=== PATIENT | male | born 1960 | race Two or more races ===

== ENCOUNTER 2016-08-09 12:27 | Inpatient (IN) | payer BC, OTHER ==
--- NOTE | 2016-08-09 12:33 | ER Document Report ---
ED Medical Screen (RME) - General Chief Complaint: Abdominal Pain Stated Complaint: STOMACH PAIN Mode of Arrival: Wheelchair Information source: Patient Notes: Patient presents to the emergency department with /o pain to the periumbilical and right lower quadrant abdominal pain for the past 2 days. reports diarrhea fever and vomited yesterday. Unable to eat. Still has gallbladder and appendix. RLQ TTP. I have greeted and performed a rapid initial assessment of this patient. A comprehensive ED assessment and evaluation of the patient, analysis of test results and completion of the medical decision making process will be conducted by additional ED providers. TRAVEL OUTSIDE OF THE [place] IN LAST 30 DAYS: No - Related Data Allergies/Adverse Reactions: No Known Allergies Allergy (Verified 08/09/16 12:31) Past Medical History - Social History Chew tobacco use (# tins/day): No Frequency of alcohol use: None Drug Abuse: None - Past Medical History Cardiac Medical History: Denies: Hx Heart Attack, Hx Hypertension Pulmonary Medical History: Denies: Hx Asthma Neurological Medical History: Denies: Hx Cerebrovascular Accident, Hx Seizures Renal/ Medical History: Denies: Hx Peritoneal Dialysis GI Medical History: Denies: Hx Hepatitis, Hx Hiatal Hernia, Hx Ulcer Infectious Medical History: Denies: Hx Hepatitis Past Surgical History: Denies: Hx Open Heart Surgery, Hx Pacemaker
--- NOTE | 2016-08-09 12:58 | ER Document Report ---
ED GI/ - General Mode of Arrival: Wheelchair Information source: Patient TRAVEL OUTSIDE OF THE [place] IN LAST 30 DAYS: No - HPI Patient complains to provider of: Abdominal pain Onset: Yesterday Timing/Duration: Gradual Quality of pain: Cramping, Dull Severity at maximum: Moderate Severity in ED: Moderate Context: denies: Bad food, Lifting, Out of the country travel, Recent trauma Location: LLQ, RLQ, Suprapubic Associated symptoms: denies: Constipation, Diarrhea, Nausea, Vomiting Exacerbated by: Denies Relieved by: Denies Similar symptoms previously: No Recently seen / treated by doctor: No <TRINITY DEL REAL - Last Filed: 08/09/16 13:15> <ROSMERY WINTER - Last Filed: 08/09/16 17:46> - General Chief Complaint: Abdominal Pain Stated Complaint: STOMACH PAIN Notes: The patient is a 56-year-old male, no past medical history, presents with 1 day of suprapubic abdominal pain. He has never had this in the past and the pain is not worse when he urinates. His initial heart rate was 90 when he arrived to the ER. When he was moved to his room, the patient started to feel palpitations and an EKG showed that he was in SVT with a heart rate of 236. He was transferred over to the acute side. Valsalva maneuver attempted and patient 's heart rate decreased down to 140s and he was now in A. fib with RVR. He has no history of A. fib. Denies shortness of breath, nausea, vomiting, bloody stools, fevers, hematuria or dysuria. (ROSMERY WINTER) - HPI Notes: 08/09/16 13:17 Shortly after being placed in room 36 in the emergency department, the patient began to complain of chest pain. He described moderate discomfort across the anterior chest, with no radiation. He denies shortness of breath. He denied nausea. On examination he was mildly diaphoretic and was noted to be markedly tachycardic. 12-lead EKG was obtained showing PSVT with a ventricular rate in the 230s. He was immediately transferred to the acute care portion of the emergency department, and the provider there alerted to his presence. (TRINITY DEL REAL) - Related Data Allergies/Adverse Reactions: No Known Allergies Allergy (Verified 08/09/16 12:31) Past Medical History - General Information source: Patient - Social History Smoking Status: Never Smoker Chew tobacco use (# tins/day): No Frequency of alcohol use: None Drug Abuse: None Lives with: Spouse/Significant other Family History: None Patient has suicidal ideation: No Patient has homicidal ideation: No - Past Medical History Cardiac Medical History: Reports: None Denies: Hx Heart Attack, Hx Hypertension Pulmonary Medical History: Reports: None Denies: Hx Asthma Neurological Medical History: Denies: Hx Cerebrovascular Accident, Hx Seizures Endocrine Medical History: Reports: None Renal/ Medical History: Reports: None. Denies: Hx Kidney Stones, Hx Peritoneal Dialysis Malignancy Medical History: Reports None GI Medical History: Reports: None. Denies: Hx Hepatitis, Hx Hiatal Hernia, Hx Ulcer Musculoskeltal Medical History: Reports None Psychiatric Medical History: Reports: None Infectious Medical History: Denies: Hx Hepatitis Past Surgical History: Denies: Hx Open Heart Surgery, Hx Pacemaker <TRINITY DEL REAL - Last Filed: 08/09/16 13:15> Review of Systems - Review of Systems Constitutional: No symptoms reported EENT: No symptoms reported Cardiovascular: Chest pain Respiratory: No symptoms reported Gastrointestinal: See HPI, Abdominal pain Genitourinary: See HPI Musculoskeletal: No symptoms reported Skin: No symptoms reported Neurological/Psychological: No symptoms reported <TRINITY DEL REAL - Last Filed: 08/09/16 13:15> <ROSMERY WINTER - Last Filed: 08/09/16 17:46> - Review of Systems Notes: REVIEW OF SYSTEMS: CONSTITUTIONAL: -fevers, -chills EENT: -eye pain, -difficulty swallowing, -nasal congestion CARDIOVASCULAR: +palpitations, -chest pain, -syncope. RESPIRATORY: -cough, -SOB GASTROINTESTINAL: +abdominal pain, -nausea, -vomiting, -diarrhea GENITOURINARY: -dysuria, -hematuria MUSCULOSKELETAL: -back pain, -neck pain SKIN: -rash or skin lesions. HEMATOLOGIC: -easy bruising or bleeding. LYMPHATIC: -swollen, enlarged glands. NEUROLOGICAL: -altered mental status or loss of consciousness, -headache, - neurologic symptoms PSYCHIATRIC: -anxiety, -depression. ALL OTHER SYSTEMS REVIEWED AND NEGATIVE. (ROSMERY WINTER) Physical Exam - Vital signs Interpretation: Hypertensive. No: Tachycardic, Tachypneic, Febrile - General General appearance: Appears well, Alert In distress: None - HEENT Head: Normocephalic Eyes: Normal Conjunctiva: Normal Ears: Normal Nasal: Normal Mouth/Lips: Normal Mucous membranes: Normal - Respiratory Respiratory status: No respiratory distress - Cardiovascular Rhythm: Regular, Tachycardia - Abdominal Inspection: Normal Distension: No distension - Extremities General upper extremity: Normal inspection General lower extremity: Normal inspection - Neurological Neuro grossly intact: Yes Cognition: Normal - Psychological Associated symptoms: Normal affect, Normal mood - Skin Skin Temperature: Warm Skin Moisture: Moist Skin Color: Normal <TRINITY DEL REAL - Last Filed: 08/09/16 13:15> <ROSMERY WINTER - Last Filed: 08/09/16 17:46> - Vital signs Vitals: Temp Pulse Resp BP Pulse Ox 99.3 F 94 20 149/83 H 96 08/09/16 12:31 08/09/16 12:31 08/09/16 12:31 08/09/16 12:31 08/09/16 12:31 Notes: Onset of extreme tachycardia after patient placed in treatment room. (TRINITY DEL REAL) - Notes Notes: PHYSICAL EXAMINATION: GENERAL: Well-appearing, well-nourished and in no acute distress. HEAD: Atraumatic, normocephalic. EYES: Pupils equal round and reactive to light, extraocular movements intact, sclera anicteric, conjunctiva are normal. ENT: nares patent, oropharynx clear without exudates. Moist mucous membranes. NECK: Normal range of motion, supple without lymphadenopathy LUNGS: Breath sounds clear to auscultation bilaterally and equal. No wheezes rales or rhonchi. HEART: Irregularly irregular heart rate is tachycardic ABDOMEN: Moderate suprapubic tenderness, soft, normoactive bowel sounds. No guarding, no rebound. No masses appreciated. EXTREMITIES: Normal range of motion, no pitting or edema. No cyanosis. NEUROLOGICAL: Cranial nerves grossly intact. Normal speech, normal gait. Normal sensory, motor, and reflex exams. PSYCH: Normal mood, normal affect. SKIN: Warm, Dry, normal turgor, no rashes or lesions noted. (ROSMERY WINTER) Course - Laboratory Result Diagrams: 08/09/16 12:45 08/09/16 12:45 <TRINITY DEL REAL - Last Filed: 08/09/16 13:15> - Laboratory Result Diagrams: 08/09/16 12:45 08/09/16 12:45 - Diagnostic Test Radiology reviewed: Image reviewed, Reports reviewed - EKG Interpretation by Me Rate: Tachycardia Rhythm: SVT <ROSMERY WINTER - Last Filed: 08/09/16 17:46> - Re-evaluation Re-evalutation: Patient's SVT with an initial rate of 238 turned into A. fib with RVR with a rate of 140. Diltiazem drip started, but patient remained in A. fib with RVR despite being on 25 mg/hr. since symptoms just started when he was in the emergency room, patient was consented for procedural sedation and he was cardioverted. He successfully cardioverted into normal sinus rhythm at a rate of 90. He is no longer feeling any palpitations. CT shows evidence of sigmoid diverticulitis. Will begin IV antibiotics for diverticulitis and admit to the hospital for further evaluation and treatment of new onset A. fib with RVR. Spoke to Dr. Torre at 1730 and he has accepted patient. (ROSMERY WINTER) - Vital Signs Vital signs: Temp Pulse Resp BP Pulse Ox 99.3 F 94 22 H 121/75 92 08/09/16 12:31 08/09/16 12:31 08/09/16 17:21 08/09/16 17:21 08/09/16 17:21 - Laboratory Laboratory results interpreted by me: 08/09/16 08/09/16 08/09/16 12:45 12:45 13:48 WBC 17.0 H RBC 5.57 H Hgb 17.1 H Seg Neutrophils % 84.8 H Lymphocytes % 9.8 L Absolute Neutrophils 14.4 H Glucose 141 H Total Bilirubin 2.4 H Direct Bilirubin 0.5 H ALT 95 H Urine Protein 30 H Urine Ketones 20 H - Diagnostic Test Radiology results interpreted by me: CT A/P: Sigmoid diverticulitis (ROSMERY WINTER) Procedures - Conscious Sedation Conscious sedation Consent obtained: Yes Indication: Cardioversion Last meal: Yesterday Prior complications: Procedural sedation Normal healthy pt.: P1. 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 Medications administered: Diprivan Reversal agents: None I personally performed/intraservice time: Sedation, Procedure, 30 min or less Complications: No - Additional Procedures Cardioversion/Defib Additional Procedures: Cardioversion/defib <ROSMERY WINTER - Last Filed: 08/09/16 17:46> Critical Care Note - Critical Care Note Total time excluding time spent on procedures (mins): 45 <ROSMERY WINTER - Last Filed: 08/09/16 17:46> Discharge <TRINITY DEL REAL - Last Filed: 08/09/16 13:15> - [facility] Admitted: Telemetry <ROSMERY WINTER - Last Filed: 08/09/16 17:46> - Discharge Clinical Impression: Atrial fibrillation with RVR Abdominal pain Qualifiers: Abdominal location: lower abdomen, unspecified Qualified Code(s): R10.30 - Lower abdominal pain, unspecified Condition: Stable Disposition: ADMITTED INPATIENT
[2016-08-09 13:04] LABS: ABSOLUTE LYMPHOCYTES (AUTO) 1.7 10^3/uL (0.5-4.7); ABSOLUTE MONOCYTES (AUTO) 0.9 10^3/uL (0.1-1.4); ABSOLUTE NEUT (AUTO) 14.4 10^3/uL (1.7-8.2); BASOPHILS % (AUTO) 0.1 % (0-2); HEMATOCRIT 48.7 % (37.9-51.0); HEMOGLOBIN 17.1 g/dL (13.5-17.0); HGB HCT DIFFERENCE 2.6; LYMPHOCYTES % (AUTO) 9.8 % (13-45); MEAN CORPUSCULAR HEMOGLOBIN 30.7 pg (27.0-33.4); MEAN CORPUSCULAR HGB CONC 35.1 g/dL (32.0-36.0); MEAN CORPUSCULAR VOLUME 87 fl (80-97); MONOCYTES % (AUTO) 5.3 % (3-13); RED BLOOD COUNT 5.57 10^6/uL (4.35-5.55); RED CELL DISTRIBUTION WIDTH 13.3 % (11.5-14.0); SEGMENTED NEUTROPHILS % (AUTO) 84.8 % (42-78)
[2016-08-09] MEDS ORDERED: ADENOSINE INJ/PF 6 MG/2 ML SDV IV ONE (13:19)
[2016-08-09 13:21] LABS: ALANINE AMINOTRANSFERASE 95 U/L (21-72); ALBUMIN 4.6 g/dL (3.5-5.0); ALKALINE PHOSPHATASE 89 U/L (38-126); ANION GAP 16 (5-19); ASPARTATE AMINO TRANSFERASE 49 U/L (17-59); BILIRUBIN,DIRECT 0.5 mg/dL (0.0-0.4); BILIRUBIN,TOTAL 2.4 mg/dL (0.2-1.3); BLOOD UREA NITROGEN 18 mg/dL (7-20); CALCIUM 9.5 mg/dL (8.4-10.2); CARBON DIOXIDE 22 mmol/L (22-30); CHLORIDE 101 mmol/L (98-107); GLUCOSE 141 mg/dL (75-110); LIPASE 85.7 U/L (23-300); POTASSIUM 3.8 mmol/L (3.6-5.0); SODIUM 139.1 mmol/L (137-145)
[2016-08-09] MEDS ORDERED: DILTIAZEM HCL/D5W 125 MG/125 ML RTUINJ IV ONE ×2 (13:25→19:38)
[2016-08-09] MEDS ORDERED: DILTIAZEM HCL INJ 25 MG/5 ML VIAL ONE ×3 (13:26→14:56)
[2016-08-09 14:04] LABS: APPEARANCE,URINE CLEAR; BILIRUBIN,URINE NEGATIVE (NEGATIVE); GLUCOSE, URINE NEGATIVE (NEGATIVE); KETONES,URINE 20 mg/dL (NEGATIVE); LEUKOCYTE ESTERASE,URINE NEGATIVE (NEGATIVE); NITRITE,URINE NEGATIVE (NEGATIVE); PROTEIN,URINE 30 mg/dL (NEGATIVE); URINE SPECIFIC GRAVITY 1.005; UROBILINOGEN,URINE NEGATIVE mg/dL (<2.0)
[2016-08-09] MEDS ORDERED: MORPHINE SULFATE 10 MG/ML INJ IV ONE (14:28)
[2016-08-09] MEDS ORDERED: CIPROFLOXACIN 400 MG/D5W RTU 200 ML IV ONE (15:56)
[2016-08-09] MEDS ORDERED: PROPOFOL INJ 200 MG/20 ML VIAL IV ONE (15:57)
[2016-08-09] MEDS ORDERED: METRONIDAZOLE 500 MG/NS RTU 100 ML IV ONE (15:57)
--- NOTE | 2016-08-09 17:18 | EKG REPORT ---
SEVERITY:- ABNORMAL ECG - ATRIAL FIBRILLATION WITH RAPID V-RATE REPOLARIZATION ABNORMALITY, PROB RATE RELATED : Confirmed by: Rajat Correa MD 09-Aug-2016 17:18:23
--- NOTE | 2016-08-09 17:19 | EKG REPORT ---
SEVERITY:- ABNORMAL ECG - SUPRAVENTRICULAR TACHYCARDIA REPOLARIZATION ABNORMALITY, PROB RATE RELATED : Confirmed by: Rajat Correa MD 09-Aug-2016 17:18:43
[2016-08-09] MEDS ORDERED: ACETAMINOPHEN 325 MG TABLET PO PRN (18:43)
[2016-08-09] MEDS ORDERED: ONDANSETRON HCL INJ/PF 4 MG/2 ML SDV IV PRN (18:43)
--- NOTE | 2016-08-09 19:01 | PDOC H&P ---
History of Present Illness Admission Date/PCP: 08/09/16 18:22 Patient complains of: Abdominal pain History of Present Illness: LIV RUFF is a 56 year old male, no significant past medical history has been having abdominal pain for the past 3 days with an episode of nausea and vomiting. No melena hematochezia or hematemesis. Patient had episodes of diarrhea as well. Patient continues to work despite feeling sick. Earlier today abdominal pain got worse and therefore she was brought to the hospital for evaluation. While in the emergency room when he related the bed he developed SVT. Patient was given adenosine and noted atrial fibrillation. Cardizem was given but no slowing of the heart rate was noted eventually DC cardioversion was performed and the patient went back to sinus. CT of the abdomen and pelvis revealed diverticulitis. Patient was then referred for admission. Past Medical History Cardiac Medical History: Reports: None Denies: Myocardial Infarction, Hypertension Pulmonary Medical History: Reports: None Denies: Asthma Neurological Medical History: Denies: Seizures Endocrine Medical History: Reports: None Renal/ Medical History: Reports: None Malignancy Medical History: Reports: None GI Medical History: Reports: None Denies: Hepatitis, Hiatal Hernia Musculoskeltal Medical History: Reports: None Psychiatric Medical History: Reports: None Hematology: Denies: Anemia, Sickle Cell Disease Past Surgical History Past Surgical History: Reports: Other - Cataract surgery Denies: Pacemaker Social History Information Source: Patient Lives with: Spouse/Significant other Smoking Status: Never Smoker Frequency of Alcohol Use: Occasional Hx Recreational Drug Use: No Drugs: None Family History Family History: None Parental Family History Reviewed: Yes Children Family History Reviewed: Yes Sibling(s) Family History Reviewed.: Yes Medication/Allergy Home Medications: Thiamine Mononitrate [Vitamin B-1] 100 mg PO DAILY 03/22/15 Fish Oil/Dha/Epa [Fish Oil 1,200 mg Fish Oil] 1 each PO DAILY 03/28/15 Allergies/Adverse Reactions: No Known Allergies Allergy (Verified 08/09/16 12:31) Review of Systems Constitutional: PRESENT: fever(s) - Low-grade. ABSENT: chills, headache(s), weight gain, weight loss Eyes: ABSENT: visual disturbances Ears: ABSENT: hearing changes Nose, Mouth, and Throat: ABSENT: mouth pain, sore throat Cardiovascular: ABSENT: chest pain, dyspnea on exertion, edema, orthropnea, palpitations Respiratory: ABSENT: cough, dyspnea, hemoptysis, sputum Gastrointestinal: PRESENT: abdominal pain, diarrhea, nausea, vomiting. ABSENT: coffee ground emesis, constipation, hematemesis, hematochezia, melena Genitourinary: ABSENT: difficulty urinating, dysuria, hematuria Musculoskeletal: ABSENT: joint swelling Integumentary: ABSENT: pruritus, rash, wounds Neurological: ABSENT: abnormal gait, abnormal speech, confusion, dizziness, focal weakness, syncope Psychiatric: ABSENT: anxiety, depression, homidical ideation, suicidal ideation Endocrine: ABSENT: cold intolerance, heat intolerance, polydipsia, polyuria Hematologic/Lymphatic: ABSENT: easy bleeding, easy bruising Physical Exam Vital Signs: Temp Pulse Resp BP Pulse Ox 99.3 F 95 20 126/68 H 93 08/09/16 12:31 08/09/16 17:13 08/09/16 18:11 08/09/16 18:11 08/09/16 18:11 General appearance: PRESENT: no acute distress, cooperative, obese - Overweight Head exam: PRESENT: atraumatic, normocephalic Eye exam: PRESENT: conjunctiva pink, EOMI, PERRLA. ABSENT: scleral icterus Ear exam: PRESENT: normal external ear exam Mouth exam: PRESENT: dry mucosa, neck supple, tongue midline Neck exam: ABSENT: carotid bruit, JVD, lymphadenopathy, thyromegaly Respiratory exam: PRESENT: clear to auscultation coretta. ABSENT: rales, rhonchi, wheezes Cardiovascular exam: PRESENT: RRR, +S1, +S2. ABSENT: diastolic murmur, gallop, rubs, systolic murmur Pulses: PRESENT: normal dorsalis pedis pul Vascular exam: PRESENT: normal capillary refill GI/Abdominal exam: PRESENT: hyperactive bowel sounds, soft, tenderness - Diffuse but mild. ABSENT: distended - Obese, guarding, mass - Limited due to discomfort, organolmegaly - Limited due to discomfort, rebound Rectal exam: PRESENT: deferred Extremities exam: PRESENT: full ROM. ABSENT: calf tenderness, clubbing, pedal edema Neurological exam: PRESENT: alert, awake, oriented to person, oriented to place , oriented to time, oriented to situation Psychiatric exam: PRESENT: appropriate affect, normal mood. ABSENT: homicidal ideation, suicidal ideation Skin exam: PRESENT: dry, intact, warm. ABSENT: cyanosis, rash Results Impressions: Abdomen/Pelvis CT 08/09/16 14:28 IMPRESSION: Diverticulitis sigmoid colon. No perforation or abscess. Assessment & Plan - Diagnosis (1) Abdominal pain Qualifiers: Abdominal location: lower abdomen, unspecified Qualified Code(s): R10.30 - Lower abdominal pain, unspecified Is this a current diagnosis for this admission?: Yes (2) Atrial fibrillation with RVR Is this a current diagnosis for this admission?: Yes (3) SVT (supraventricular tachycardia) Is this a current diagnosis for this admission?: Yes - Time Time Spent: 30 to 50 Minutes - Inpatient Certification Based on my medical assessment, after consideration of the patient's comorbidities, presenting symptoms, or acuity I expect that the services needed warrant INPATIENT care.: Yes I certify that my determination is in accordance with my understanding of Medicare's requirements for reasonable and necessary INPATIENT services [42 CFR 412.3e].: Yes Medical Necessity: Significant Comorbidiites Make Outpatient Treatment Too Risky , Need Close Monitoring Due to Risk of Patient Decompensation, Need For IV Fluids, Need for IV Antibiotics Post Hospital Care: D[facility] [employer] Floorperson Documentation - Plan Summary Plan Summary: The patient will be admitted to [facility]. We will monitor for any more arrhythmias. In the meantime we will consult cardiology for further evaluation. I we'll start the patient on intravenous Invanz. Antiemetics and analgesics will be given as needed. I will hydrate the patient with normal saline. DVT prophylaxis with Lovenox will be placed. Further testing depending on the initial evaluation as above. We will obtain cardiac enzymes 3.
[2016-08-09 19:37] LABS: ADD ON TESTING BLD IN LAB ACKNOWLEDGE
[2016-08-09] MEDS ORDERED: METOPROLOL SUCCINATE 25 MG TAB.SR.24H PO ONE (20:00)
[2016-08-09] MEDS ORDERED: ERTAPENEM SODIUM INJ 1 GM VIAL IV PRN (20:00)
[2016-08-09] MEDS ORDERED: ERTAPENEM SODIUM 1 GM in NORMAL SALINE 50 ML IV SCH (20:00)
[2016-08-09 20:13] LABS: CREATINE KINASE MB 0.36 ng/mL (<4.55)
[2016-08-09 20:21] LABS: URINE BARBITURATES SCREEN NEGATIVE; URINE METHADONE SCREEN NEGATIVE; URINE OPIATES LOW NEGATIVE; URINE PHENCYCLIDINE SCREEN NEGATIVE
[2016-08-09 20:50] LABS: THYROID STIMULATING HORMONE 1.05 uIU/mL (0.47-4.68)
[2016-08-09] MEDS: METOPROLOL SUCCINATE 25 MG TAB.SR.24H PO SCH (20:50)
[2016-08-10] MEDS: NORMAL SALINE 1000 ML 1,000 ML IV PRN ×3 (01:23→18:08)
[2016-08-10 01:58] LABS: CREATINE KINASE MB 0.51 ng/mL (<4.55)
[2016-08-10 02:04] LABS: TROPONIN I 0.116 ng/mL
[2016-08-10 02:15] LABS: TROPONIN I 0.151 ng/mL
[2016-08-10] MEDS: LANSOPRAZOLE 30 MG TAB.RAP.DR PO SCH (06:43)
[2016-08-10 07:22] LABS: ABSOLUTE BASOPHILS # (AUTO) 0.1 10^3/uL (0.0-0.2); ABSOLUTE LYMPHOCYTES (AUTO) 1.5 10^3/uL (0.5-4.7); ABSOLUTE MONOCYTES (AUTO) 0.9 10^3/uL (0.1-1.4); ABSOLUTE NEUT (AUTO) 11.5 10^3/uL (1.7-8.2); BASOPHILS % (AUTO) 0.5 % (0-2); EOSINOPHILS % (AUTO) 0.3 % (0-6); HEMATOCRIT 40.6 % (37.9-51.0); HGB HCT DIFFERENCE 1.4; MEAN CORPUSCULAR HEMOGLOBIN 30.6 pg (27.0-33.4); MEAN CORPUSCULAR HGB CONC 34.6 g/dL (32.0-36.0); MEAN CORPUSCULAR VOLUME 89 fl (80-97); MONOCYTES % (AUTO) 6.3 % (3-13); RED BLOOD COUNT 4.58 10^6/uL (4.35-5.55); RED CELL DISTRIBUTION WIDTH 13.4 % (11.5-14.0); SEGMENTED NEUTROPHILS % (AUTO) 81.9 % (42-78)
[2016-08-10 07:37] LABS: ANION GAP 10 (5-19); BLOOD UREA NITROGEN 12 mg/dL (7-20); CALCIUM 8.2 mg/dL (8.4-10.2); CARBON DIOXIDE 22 mmol/L (22-30); CHLORIDE 109 mmol/L (98-107); CREATINE KINASE 182 U/L (55-170); CREATININE RESULT 0.69 mg/dL (0.52-1.25); GLUCOSE 116 mg/dL (75-110); POTASSIUM 3.7 mmol/L (3.6-5.0); SODIUM 140.9 mmol/L (137-145)
[2016-08-10 07:47] LABS: CREATINE KINASE MB 1.19 ng/mL (<4.55); TROPONIN I 0.072 ng/mL
[2016-08-10] MEDS: ENOXAPARIN SODIUM INJ 40 MG/0.4 ML DISP.SYRIN SUBCUT SCH (08:09)
--- NOTE | 2016-08-10 08:53 | EKG REPORT ---
SEVERITY:- ABNORMAL ECG - SINUS RHYTHM POST PVC PAUSE W/ SUPRAVENTRICULAR ESCAPE BORDERLINE T ABNORMALITIES, INFERIOR LEADS : Confirmed by: Rajat Correa MD 10-Aug-2016 08:52:47
--- NOTE | 2016-08-10 08:57 | PDOC PROGRESS REPORT ---
Subjective Progress Note for:: 08/10/16 Subjective:: Better today. Denies any nausea or vomiting. Still with abdominal pain. Some stools but not diarrhea according to spouse. Denies stiffness or fever. No reported SVT or palpitation. Patient denies chest pain. No rectal bleeding. Physical Exam Vital Signs: Temp Pulse Resp BP Pulse Ox 99.0 F 68 20 111/74 97 08/10/16 08:00 08/10/16 08:00 08/10/16 08:00 08/10/16 08:00 08/10/16 08:00 Intake & Output 08/09/16 08/10/16 08/11/16 06:59 06:59 06:59 Weight 78.3 kg General appearance: PRESENT: no acute distress, cooperative, obese Head exam: PRESENT: normocephalic Eye exam: PRESENT: EOMI Mouth exam: PRESENT: moist, neck supple Neck exam: ABSENT: JVD Respiratory exam: PRESENT: clear to auscultation coretta. ABSENT: rhonchi, wheezes Cardiovascular exam: PRESENT: RRR. ABSENT: gallop GI/Abdominal exam: PRESENT: hyperactive bowel sounds, soft. ABSENT: distended, tenderness Extremities exam: ABSENT: pedal edema Skin exam: PRESENT: dry, warm. ABSENT: cyanosis Results Laboratory Results: 08/10/16 07:14 08/10/16 07:14 08/10/16 08/10/16 07:14 07:14 WBC 14.0 H RBC 4.58 Hgb 14.0 D Hct 40.6 MCV 89 MCH 30.6 MCHC 34.6 RDW 13.4 Plt Count 128 L Seg Neutrophils % 81.9 H Lymphocytes % 11.0 L Monocytes % 6.3 Eosinophils % 0.3 Basophils % 0.5 Absolute Neutrophils 11.5 H Absolute Lymphocytes 1.5 Absolute Monocytes 0.9 Absolute Eosinophils 0.0 Absolute Basophils 0.1 Sodium 140.9 Potassium 3.7 Chloride 109 H Carbon Dioxide 22 Anion Gap 10 BUN 12 Creatinine 0.69 Est GFR ( Amer) > 60 Est GFR (Non-Af Amer) > 60 Glucose 116 H Calcium 8.2 L 08/09/16 08/09/16 08/10/16 19:35 19:35 01:23 Creatine Kinase 147 168 CK-MB (CK-2) 0.36 Troponin I 0.151 0308/10/16 08/10/16 01:23 07:14 07:14 Creatine Kinase 182 H CK-MB (CK-2) 0.51 1.19 Troponin I 0.116 0.072 Impressions: Chest X-Ray 08/09/16 00:00 IMPRESSION: NO SIGNIFICANT RADIOGRAPHIC FINDING IN THE CHEST. Abdomen/Pelvis CT 08/09/16 14:28 IMPRESSION: Diverticulitis sigmoid colon. No perforation or abscess. Lung Scan-VQ NM 08/09/16 21:07 IMPRESSION: NO VENTILATION-PERFUSION MISMATCHES; NEGATIVE FOR PULMONARY EMBOLI. INHOMOGENEOUS DISTRIBUTION OF RADIOTRACER LIKELY ON THE BASIS OF UNDERLYING CHRONIC PULMONARY DISEASE. Assessment & Plan - Diagnosis (1) Abdominal pain Qualifiers: Abdominal location: lower abdomen, unspecified Qualified Code(s): R10.30 - Lower abdominal pain, unspecified Is this a current diagnosis for this admission?: Yes (2) Atrial fibrillation with RVR Is this a current diagnosis for this admission?: Yes (3) SVT (supraventricular tachycardia) Is this a current diagnosis for this admission?: Yes - Time Time Spent with patient: 25-34 minutes - Plan Summary Plan Summary: Case discussed with cardiology. Metoprolol started. Continue current antibiotics and IV fluids. Continue current diet consistency for now. We will transfer to telemetry [place]. Monitor electrolytes and WBC.
[2016-08-10] MEDS: OXYCODONE HCL IR 5 MG TABLET PO PRN ×4 (10:08→22:42)
[2016-08-10] MEDS: METOPROLOL SUCCINATE 25 MG TAB.SR.24H PO SCH ×2 (10:09→22:38)
[2016-08-10] MEDS ORDERED: METOPROLOL TARTRATE PF/INJ 5 MG/5 ML SDV IV ONE (16:17)
[2016-08-10] MEDS ORDERED: POTASSI CL 20 MEQ/50 ML RIDER 20 MEQ/50 ML RTUPB IV ONE (16:42)
[2016-08-10] MEDS ORDERED: AMIODARONE HCL 150 MG in DEXTROSE 5%-WATER 100 ML IV ONE (17:00)
[2016-08-10] MEDS: METOPROLOL TARTRATE PF/INJ 5 MG/5 ML SDV IV PRN (17:08)
[2016-08-10] MEDS: POTASSIUM CHLORIDE 20 MEQ/50 ML RTU IV SCH ×2 (17:09→20:42)
[2016-08-10] MEDS: DEXTROSE 5%-WATER 500 ML with AMIODARONE HCL 900 MG IV PRN ×2 (17:10)
--- NOTE | 2016-08-10 17:37 | PDOC PROGRESS REPORT ---
Subjective Progress Note for:: 08/10/16 Subjective:: Patient seems to be doing better with gradual improvement. Pt is denying any chest arm or neck discomfort. Patient denying any PND, orthopnea. Patient denied any sustained palpitations, dizziness, syncope, near syncope. Patient denying any fever chills. Patient denying any other significant discomfort. Patient is maintaining sinus rhythm. However he is noted to have frequent short runs of SVT/paroxysmal atrial tachycardia. Patient feels poorly and does poorly when he has this short runs. Review of systems: Rest review of systems negative. Medications: Medications have been reviewed. Physical Exam Vital Signs: Temp Pulse Resp BP Pulse Ox 99.5 F 75 20 126/69 H 96 08/10/16 12:00 08/10/16 12:00 08/10/16 14:00 08/10/16 12:43 08/10/16 14:00 Intake & Output 08/09/16 08/10/16 08/11/16 06:59 06:59 06:59 Intake Total 112 Output Total 100 Balance 12 Weight 78.3 kg Exam: GENERAL: well-nourished and in no acute distress. Alert and oriented x3 HEAD: Atraumatic, normocephalic. EYES: Pupils equal round and reactive to light, extraocular movements intact, sclera anicteric, conjunctiva are normal. ENT: TMs normal, nares patent, oropharynx clear without exudates. Moist mucous membranes. No oral ulcerations or bleeding gums noted NECK: supple without lymphadenopathy. Trachea is central. No cervical or axillary lymphadenopathy noted. Carotids are 2+, JVD WNL LUNGS: Respiration seems nonlabored, no significant accessory muscle action noted. Breath sounds clear to auscultation bilaterally and equal noted. No wheezes rales or rhonchi noted. No significant dullness noted on percussion. CHEST: Palpation of the chest wall shows no significant chest wall tenderness. No other significant abnormalities noted. 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 ABDOMEN: Soft, lower abdominal significant tenderness appreciated, normoactive bowel sounds. No guarding, no rebound. No rigidity noted . No masses appreciated. EXTREMITIES: Pedal pulses are 1-2+, no calf tenderness noted. No clubbing or cyanosis. negative pedal edema noted NEUROLOGICAL: Focused neurological exam showed no significant neurologic deficit. Normal speech, no focal weakness appreciated. PSYCH: Normal mood, normal affect. Judgment and insight within normal limits. SKIN: No significant ecchymosis, rash, ulcerations or signs of pruritus noted. MUSCULOSKELETAL EXAM: No significant joint swelling noted. Results Laboratory Results: 08/10/16 07:14 08/10/16 07:14 08/10/16 08/10/16 07:14 07:14 WBC 14.0 H RBC 4.58 Hgb 14.0 D Hct 40.6 MCV 89 MCH 30.6 MCHC 34.6 RDW 13.4 Plt Count 128 L Seg Neutrophils % 81.9 H Lymphocytes % 11.0 L Monocytes % 6.3 Eosinophils % 0.3 Basophils % 0.5 Absolute Neutrophils 11.5 H Absolute Lymphocytes 1.5 Absolute Monocytes 0.9 Absolute Eosinophils 0.0 Absolute Basophils 0.1 Sodium 140.9 Potassium 3.7 Chloride 109 H Carbon Dioxide 22 Anion Gap 10 BUN 12 Creatinine 0.69 Est GFR ( Amer) > 60 Est GFR (Non-Af Amer) > 60 Glucose 116 H Calcium 8.2 L 08/09/16 08/09/16 08/10/16 19:35 19:35 01:23 Creatine Kinase 147 168 CK-MB (CK-2) 0.36 Troponin I 0.151 08/10/16 08/10/16 08/10/16 01:23 07:14 07:14 Creatine Kinase 182 H CK-MB (CK-2) 0.51 1.19 Troponin I 0.116 0.072 Impressions: Chest X-Ray 08/09/16 00:00 IMPRESSION: NO SIGNIFICANT RADIOGRAPHIC FINDING IN THE CHEST. Abdomen/Pelvis CT 08/09/16 14:28 IMPRESSION: Diverticulitis sigmoid colon. No perforation or abscess. Lung Scan-VQ NM 08/09/16 21:07 IMPRESSION: NO VENTILATION-PERFUSION MISMATCHES; NEGATIVE FOR PULMONARY EMBOLI. INHOMOGENEOUS DISTRIBUTION OF RADIOTRACER LIKELY ON THE BASIS OF UNDERLYING CHRONIC PULMONARY DISEASE. Assessment & Plan - Diagnosis (1) Atrial fibrillation with RVR Is this a current diagnosis for this admission?: Yes (2) Diverticulitis large intestine Qualifiers: Diverticulitis complication: without perforation or abscess Is this a current diagnosis for this admission?: Yes (3) Obesity Qualifiers: Obesity severity: unspecified obesity severity Is this a current diagnosis for this admission?: Yes (4) Paroxysmal atrial tachycardia Is this a current diagnosis for this admission?: Yes - Notes Notes: Atrial fibrillation with rapid ventricular response: Patient is having frequent runs of short atrial fibrillation, PAT, SVT etc. at this point feel that best option would be to load him with amiodarone and start him on amiodarone bolus. Patient tend not to do well when he goes into A. fib and needed cardioversion yesterday. Continue with beta bailee therapy. Patient also noted to be intermittently hypotensive. Troponin I elevation: Most likely related to atrial fibrillation with rapid ventricular response. Could also be related to electrical cardioversion. These are now trending down. Acute diverticulitis: Patient improving gradually with antibiotic therapy. - Time Time with patient: Greater than 35 minutes - I was called several times on this patient because of paroxysmal atrial fibrillation, SVT PAT etc. Patient has difficulty affording medication. It was felt for that reason to choose amiodarone. I feel that patient would just continue amiodarone for total of just one month. Hopefully by this any side effects can be minimized. CODE STATUS was discussed, patient remains full code. Surrogate decision-maker unchanged. Multiple medical problems were addressed.More than 50% of the time spent coordinating care, discussing management plans with involved caregivers. Management plans discussed with involved personnels. Medical decision making was of moderate complexity. Medications reviewed and adjusted accordingly: Yes
--- NOTE | 2016-08-10 17:39 | PDOC CONSULTATION ---
Consultation Consult Date: 08/09/16 Attending physician:: CATY CHATMAN Consult reason:: Atrial fibrillation with rapid ventricular response History of Present Illness Admission Date/PCP: 08/09/16 18:22 Patient complains of: Abdominal pain, heart palpitations History of Present Illness: LIV RUFF is a 56 year old male, no significant past medical history has been having abdominal pain for the past 3 days with an episode of nausea and vomiting. No melena hematochezia or hematemesis. Patient had episodes of diarrhea as well. Patient continues to work despite feeling sick. Earlier today abdominal pain got worse and therefore he was brought to the hospital for evaluation. While in the emergency room when he resting in the bed he developed SVT. Patient was given adenosine and noted atrial fibrillation. Cardizem was given but no slowing of the heart rate was noted eventually DC cardioversion was performed and the patient went back to sinus. CT of the abdomen and pelvis revealed diverticulitis. Patient was then admitted. I was asked to evaluate patient for paroxysmal atrial fibrillation. Past Medical History Cardiac Medical History: Reports: None Denies: Myocardial Infarction, Hypertension Pulmonary Medical History: Reports: None Denies: Asthma Neurological Medical History: Denies: Seizures Endocrine Medical History: Reports: None Renal/ Medical History: Reports: None Malignancy Medical History: Reports: None GI Medical History: Reports: None Denies: Hepatitis, Hiatal Hernia Musculoskeltal Medical History: Reports: None Psychiatric Medical History: Reports: None Hematology: Denies: Anemia, Sickle Cell Disease Past Surgical History Past Surgical History: Reports: Other - Cataract surgery Denies: Pacemaker Social History Information Source: Patient Lives with: Spouse/Significant other Smoking Status: Never Smoker Frequency of Alcohol Use: Occasional Hx Recreational Drug Use: No Drugs: None - Advance Directive Resuscitation Status: Full Code Surrogate healthcare decision maker:: Patient's spouse Family History Family History: None Parental Family History Reviewed: Yes Children Family History Reviewed: Yes Sibling(s) Family History Reviewed.: Yes Medication/Allergy Home Medications: Thiamine Mononitrate [Vitamin B-1] 100 mg PO DAILY 03/22/15 Fish Oil/Dha/Epa [Fish Oil 1,200 mg Fish Oil] 1 each PO DAILY 03/28/15 Allergies/Adverse Reactions: No Known Allergies Allergy (Verified 08/09/16 12:31) Review of Systems Review of Systems: Please see history of present illness and past medical history as wall. Constitutional: Recent fever and chills reported. Head : No recent chronic headaches, recent head injury. Eyes: No recent eye pain, diplopia, redness, discharge, acute visual changes. Ears: No recent chronic ear pain, acute hearing loss, ear discharge. Oral cavity: No recent ulcerations, bleeding, oral cavity discomfort. Neck: No recent acute neck pain reported. Hematologic: No recent easy bruising or bleeding or hematologic malignancy reported. Lymphatic: No recent lymphatic malignancy, chronic lymphadenopathy reported yet Cardiovascular system review: See history of present illness. Respiratory system review: No recent chronic cough, hemoptysis, blood clots in the lungs reported. Gastrointestinal system review: Recent abdominal pain along with nausea and vomiting reported. Genitourinary system review: No recent acute or chronic hematuria, flank pain, UTI etc. reported. Recent frequency of urination reported. Skin system review: Negative for any recent abnormal bruising, no rash, no pruritus reported. Neurologic: No prior history of strokes, mini strokes, seizure disorder. Psychologic: No history of major psychosis or major depression reported. Musculoskeletal: Minor aches and pains reported. No acute joint swelling reported. Endocrine: No recent polyuria, polydipsia, recent heat or cold intolerance. Physical Exam Vital Signs: Temp Pulse Resp BP Pulse Ox 99.3 F 95 20 126/68 H 93 08/09/16 12:31 08/09/16 17:13 08/09/16 18:11 08/09/16 18:11 08/09/16 18:11 Exam: GENERAL: well-nourished and in no acute distress. Alert and oriented x3 HEAD: Atraumatic, normocephalic. EYES: Pupils equal round and reactive to light, extraocular movements intact, sclera anicteric, conjunctiva are normal. ENT: TMs normal, nares patent, oropharynx clear without exudates. Moist mucous membranes. No oral ulcerations or bleeding gums noted NECK: supple without lymphadenopathy. Trachea is central. No cervical or axillary lymphadenopathy noted. Carotids are 2+, JVD WNL LUNGS: Respiration seems nonlabored, no significant accessory muscle action noted. Breath sounds clear to auscultation bilaterally and equal noted. No wheezes rales or rhonchi noted. No significant dullness noted on percussion. CHEST: Palpation of the chest wall shows no significant chest wall tenderness. No other significant abnormalities noted. 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 ABDOMEN: Soft, lower abdominal significant tenderness appreciated, normoactive bowel sounds. No guarding, no rebound. No rigidity noted . No masses appreciated. EXTREMITIES: Pedal pulses are 1-2+, no calf tenderness noted. No clubbing or cyanosis.trace to 1+ pedal edema noted NEUROLOGICAL: Focused neurological exam showed no significant neurologic deficit. Normal speech, no focal weakness appreciated. PSYCH: Normal mood, normal affect. Judgment and insight within normal limits. SKIN: No significant ecchymosis, rash, ulcerations or signs of pruritus noted. MUSCULOSKELETAL EXAM: No significant joint swelling noted. Results EKG Comments: Initial EKG showed atrial fibrillation with very rapid ventricular response. Post cardioversion Sinus rhythm, no acute ST-T wave changes. Impressions: Abdomen/Pelvis CT 08/09/16 14:28 IMPRESSION: Diverticulitis sigmoid colon. No perforation or abscess. Assessment & Plan - Diagnosis (1) Atrial fibrillation with RVR Is this a current diagnosis for this admission?: Yes (2) Diverticulitis large intestine Qualifiers: Diverticulitis complication: without perforation or abscess Is this a current diagnosis for this admission?: Yes (3) Obesity Qualifiers: Obesity severity: unspecified obesity severity Is this a current diagnosis for this admission?: Yes - Notes Notes: Atrial fibrillation with rapid ventricular response: Paroxysmal. Patient needed cardioversion. Probably precipitated by metabolic problems including acute diverticulitis. At this point recommend beta bailee therapy. Do not feel chronic anticoagulation is indicated. Patient will benefit from cardiac monitoring with event monitor. Diverticulitis of sigmoid colon: Continue antibiotic therapy. Obesity: Patient has obesity. Exam suggest that patient may have underlying sleep apnea syndrome. In view of paroxysmal atrial fibrillation, patient will benefit from a sleep study. This will be scheduled as an outpatient. We will continue to monitor patient closely. As for atrial fibrillation, Depending upon frequency and how often it occurs and precipitating factors etc. , future management plans will be decided. - Time Time Spent: 30 to 50 Minutes - CODE STATUS was discussed, patient remains full code. Surrogate decision-maker unchanged. Multiple medical problems were addressed.More than 50% of the time spent coordinating care, discussing management plans with involved caregivers. Management plans discussed with involved personnels. Medical decision making was of moderate complexity. Medications reviewed and adjusted accordingly: Yes
[2016-08-10] MEDS ORDERED: DRONEDARONE HYDROCHLORIDE 400 MG TABLET PO SCH (18:00)
[2016-08-10] MEDS ORDERED: ERTAPENEM SODIUM 1 GM in NORMAL SALINE 50 ML IV SCH (20:00)
[2016-08-11] MEDS: NORMAL SALINE 1000 ML 1,000 ML IV PRN ×3 (01:45→20:54)
[2016-08-11] MEDS: DEXTROSE 5%-WATER 500 ML with AMIODARONE HCL 900 MG IV PRN ×2 (01:45)
[2016-08-11 05:11] LABS: HEMATOCRIT 42.6 % (37.9-51.0); HEMOGLOBIN 14.8 g/dL (13.5-17.0); HGB HCT DIFFERENCE 1.8; MEAN CORPUSCULAR HEMOGLOBIN 30.8 pg (27.0-33.4); MEAN CORPUSCULAR HGB CONC 34.8 g/dL (32.0-36.0); MEAN CORPUSCULAR VOLUME 89 fl (80-97); RED CELL DISTRIBUTION WIDTH 13.3 % (11.5-14.0); WHITE BLOOD COUNT 12.5 10^3/uL (4.0-10.5)
[2016-08-11 05:38] LABS: ANION GAP 13 (5-19); BLOOD UREA NITROGEN 9 mg/dL (7-20); CALCIUM 8.3 mg/dL (8.4-10.2); CARBON DIOXIDE 22 mmol/L (22-30); CHLORIDE 106 mmol/L (98-107); CREATININE RESULT 0.63 mg/dL (0.52-1.25); GLUCOSE 124 mg/dL (75-110); POTASSIUM 3.9 mmol/L (3.6-5.0); SODIUM 140.5 mmol/L (137-145)
[2016-08-11] MEDS: LANSOPRAZOLE 30 MG TAB.RAP.DR PO SCH (06:06)
[2016-08-11] MEDS: ENOXAPARIN SODIUM INJ 40 MG/0.4 ML DISP.SYRIN SUBCUT SCH (09:06)
[2016-08-11] MEDS: METOPROLOL SUCCINATE 25 MG TAB.SR.24H PO SCH ×2 (09:07→21:16)
[2016-08-11] MEDS ORDERED: POTASSIUM CHLORIDE 10 MEQ TABLET.SA PO ONE (09:11)
--- NOTE | 2016-08-11 09:14 | PDOC PROGRESS REPORT ---
Subjective Progress Note for:: 08/11/16 Subjective:: Abdominal pain is better. Discomfort is less. Diarrhea is still present but less. No nausea or vomiting or chills or fever. Patient in atrial fibrillation started on amiodarone drip by cardiology service. Heart rate is controlled at this time. Patient denies chest pain. Physical Exam Vital Signs: Temp Pulse Resp BP Pulse Ox 97.8 F 109 H 16 119/82 100 08/11/16 08:00 08/11/16 08:00 08/11/16 08:00 08/11/16 08:00 08/11/16 08:00 Intake & Output 08/10/16 08/11/16 08/12/16 06:59 06:59 06:59 Intake Total 4105 Output Total 2325 Balance 1780 Weight 78.3 kg 77.2 kg General appearance: PRESENT: no acute distress, cooperative, obese Head exam: PRESENT: normocephalic Eye exam: PRESENT: EOMI Mouth exam: PRESENT: moist, neck supple Neck exam: ABSENT: JVD Respiratory exam: PRESENT: clear to auscultation coretta Cardiovascular exam: PRESENT: irregular rhythm. ABSENT: gallop GI/Abdominal exam: PRESENT: soft, tenderness - Mild periumbilically. ABSENT: distended Extremities exam: ABSENT: pedal edema Neurological exam: PRESENT: alert, awake, oriented to situation Skin exam: PRESENT: dry, warm. ABSENT: cyanosis Results Laboratory Results: 08/11/16 04:25 08/11/16 04:25 08/11/16 08/11/16 04:25 04:25 WBC 12.5 H RBC 4.80 Hgb 14.8 Hct 42.6 MCV 89 MCH 30.8 MCHC 34.8 RDW 13.3 Plt Count 128 L Sodium 140.5 Potassium 3.9 Chloride 106 Carbon Dioxide 22 Anion Gap 13 BUN 9 Creatinine 0.63 Est GFR ( Amer) > 60 Est GFR (Non-Af Amer) > 60 Glucose 124 H Calcium 8.3 L 08/09/16 08/09/16 08/10/16 19:35 19:35 01:23 Creatine Kinase 147 168 CK-MB (CK-2) 0.36 Troponin I 0.151 08/10/16 08/10/16 08/10/16 01:23 07:14 07:14 Creatine Kinase 182 H CK-MB (CK-2) 0.51 1.19 Troponin I 0.116 0.072 Impressions: Chest X-Ray 08/09/16 00:00 IMPRESSION: NO SIGNIFICANT RADIOGRAPHIC FINDING IN THE CHEST. Abdomen/Pelvis CT 08/09/16 14:28 IMPRESSION: Diverticulitis sigmoid colon. No perforation or abscess. Lung Scan-VQ NM 08/09/16 21:07 IMPRESSION: NO VENTILATION-PERFUSION MISMATCHES; NEGATIVE FOR PULMONARY EMBOLI. INHOMOGENEOUS DISTRIBUTION OF RADIOTRACER LIKELY ON THE BASIS OF UNDERLYING CHRONIC PULMONARY DISEASE. Chest/Abdomen CTA 08/10/16 00:00 IMPRESSION: NORMAL CTA OF THE CHEST. NO PULMONARY EMBOLI. Assessment & Plan - Diagnosis (1) Abdominal pain Qualifiers: Abdominal location: lower abdomen, unspecified Qualified Code(s): R10.30 - Lower abdominal pain, unspecified Is this a current diagnosis for this admission?: Yes (2) Atrial fibrillation with RVR Is this a current diagnosis for this admission?: Yes (3) SVT (supraventricular tachycardia) Is this a current diagnosis for this admission?: Yes - Time Time Spent with patient: 25-34 minutes - Plan Summary Plan Summary: Continue antibiotics, continue amiodarone per cardiology service. We will try to advance diet. Potassium of 3.9, we will give extra dose today. We will continue to monitor WBC as well as electrolytes.
[2016-08-11] MEDS ORDERED: METOPROLOL TARTRATE PF/INJ 5 MG/5 ML SDV IV ONE (12:01)
--- NOTE | 2016-08-11 15:59 | EKG REPORT ---
SEVERITY:- ABNORMAL ECG - ATRIAL FIBRILLATION BORDERLINE T ABNORMALITIES, INFERIOR LEADS : Confirmed by: Davida Beltrán 11-Aug-2016 15:57:53
--- NOTE | 2016-08-11 20:21 | XCELERA REPORT ---
[address] [address] Transthoracic Echocardiogram Report Name: LIV RUFF Age: 56 yrs Gender: Male : 1960 Patient Status: Inpatient Patient Location: ICU\S\612\S\A Study Date: 08/11/2016 08:25 AM Height: 62 in Weight: 172 lb BSA: 1.8 m2 Procedure: A complete two-dimensional transthoracic echocardiogram was performed (2D, M-mode, spectral and color flow Doppler). The study was technically adequate with some images being suboptimal in quality. Reason For Study: atrial fibrillation Ordering Physician: DAVIDA JERNIGAN Performed By: Joya Stewart Interpretation Summary The left ventricular ejection fraction is normal. There is mild concentric left ventricular hypertrophy. The left ventricle is grossly normal size. LV diastolic function could not be adequately assessed. Wall motion cannot be accurately commented on, but no definite regional wall motion abnormalities noted. The right ventricle is grossly normal size. The right ventricular systolic function is normal. The left atrial size is normal. The right atrium is normal in size There is a trace amount of mitral regurgitation There is no mitral valve stenosis. No aortic regurgitation is present. There is no aortic valve stenosis There is a trace or physiologic amount of tricuspid regurgitation Right ventricular systolic pressure is at the upper limits of normal The aortic root is not well visualized but is probably normal size. The inferior vena cava was not well visualized There is no pericardial effusion. MMode/2D Measurements \T\ Calculations RVDd: 3.3 cm LVIDd: 3.7 cm FS: 26.1 % Ao root diam: 3.3 cm IVSd: 1.3 cm LVIDs: 2.8 cm EDV(Teich): 59.0 ml LVPWd: 1.2 cm ESV(Teich): 28.3 ml Ao root area: 8.6 cm2 EF(Teich): 52.0 % LA dimension: 2.8 cm LVOT diam: 2.2 cm LVOT area: 3.7 cm2 Doppler Measurements \T\ Calculations MV E max alex: MV P1/2t max alex: Ao V2 max: LV V1 max P.5 cm/sec 78.0 cm/sec 121.6 cm/sec 1.9 mmHg MV P1/2t: 58.4 msec Ao max PG: LV V1 max: MVA(P1/2t): 3.8 cm2 5.9 mmHg 69.6 cm/sec MV dec slope: JOYCE(V,D): 2.1 cm2 391.0 cm/sec2 PA V2 max: TR max alex: 67.1 cm/sec 233.5 cm/sec PA max PG: TR max P.8 mmHg 1.8 mmHg Left Ventricle The left ventricle is grossly normal size. There is mild concentric left ventricular hypertrophy. The left ventricular ejection fraction is normal. LV diastolic function could not be adequately assessed. Wall motion cannot be accurately commented on, but no definite regional wall motion abnormalities noted. Right Ventricle The right ventricle is grossly normal size. There is normal right ventricular wall thickness. The right ventricular systolic function is normal. Atria The right atrium is normal in size. The left atrial size is normal. Interarterial septum not well visualized and not well dopplered. Cannot comment on ASD/PFO presence. Mitral Valve The mitral valve leaflets are sclerotic, but show no functional abnormalities. There is no mitral valve stenosis. There is a trace amount of mitral regurgitation. Aortic Valve The aortic valve is grossly normal. There is no aortic valve stenosis. No aortic regurgitation is present. Tricuspid Valve The tricuspid valve is not well visualized, but is grossly normal. There is no tricuspid stenosis. There is a trace or physiologic amount of tricuspid regurgitation. Right ventricular systolic pressure is at the upper limits of normal. Pulmonic Valve The pulmonic valve is not well visualized. Great Vessels The aortic root is not well visualized but is probably normal size. The inferior vena cava was not well visualized. Effusions There is no pericardial effusion. : DAVIDA JERNIGAN > Davida Jernigan
[2016-08-11] MEDS: ERTAPENEM SODIUM 1 GM in NORMAL SALINE 50 ML IV SCH (20:54)
[2016-08-11] MEDS ORDERED: METOPROLOL SUCCINATE 25 MG TAB.SR.24H PO ONE (22:00)
--- NOTE | 2016-08-11 22:08 | PROGRESS NOTE E ---
Progress Note NAME: LIV RUFF : 1960 AGE: 56Y DATE: 08/11/2016 ROOM: 612 SUBJECTIVE: The patient states that his lower abdominal pain is much improved, but still has some diarrhea. He is afebrile with temperature of 98.5 degrees Fahrenheit. Note that the patient has gone back into atrial fibrillation. He denies any chest pain or discomfort. There is no palpitations. There is no PND or orthopnea. There is no TIA or CVA symptoms. On the monitor, it shows that the patient is back in atrial fibrillation. OBJECTIVE: VITAL SIGNS: The patient is mildly obese in no acute distress. He is afebrile with temperature of 98.5 degrees Fahrenheit, pulse is 90 beats/minute, blood pressure is 128/87, respirations are 14 per minute, O2 sats are 97% on room air. HEENT: Normocephalic, atraumatic. Pupils are equal, round, regular and reactive to light and accommodation. Extraocular movements are normal. There is no conjunctival pallor. There is no scleral icterus. ENT is negative. NECK: Supple. There is no JVD. Carotids are equal. There is no bruit. There is no lymphadenopathy. Trachea is central. There is no goiter. LUNGS: Clear to auscultation and percussion. HEART: S1 and S2 is heard. There is variable S1 present. There is systolic murmur at the left sternal border of the apex. There is no rub. ABDOMEN: Soft. There is some tenderness in the lower abdomen, especially on the right side. There is no rebound, guarding or rigidity. Bowel sounds are normal. EXTREMITIES: Femorals are slightly diminished. There are no femoral bruits. Leg pulses are diminished. There is no pedal edema. There is clubbing or cyanosis. There is no calf tenderness. CENTRAL NERVOUS SYSTEM: The patient is awake, alert, oriented x3 with no focal deficits. PSYCHIATRIC: The patient's judgment and insight within normal limits. His affect is normal. DIAGNOSTICS: His echocardiogram report has not been read as yet. The patient's white count is coming down to 12,500, hemoglobin 14.8, hematocrit is 42.6, platelet count is 128,000. The patient's sodium is 140.5, potassium 3.9, chloride 106, CO2 is 22. The patient's BUN is 9 and creatinine is 0.63. His troponin yesterday morning was 0.072 with negative CPK/MB. The patient's EKG shows atrial fibrillation, borderline T-wave abnormalities in the inferior leads. Note echocardiogram is awaited. DIAGNOSES: 1. ATRIAL FIBRILLATION WITH NOW CONTROLLED VENTRICULAR RESPONSE. 2. DIVERTICULITIS. 3. OBESITY. 4. THERE IS NO EVIDENCE OF SVT OR PAT, MOST LIKELY THE PATIENT HAD RAPID ATRIAL FLUTTER FOR SHORT PERIODS. RECOMMENDATIONS: Continue the patient on current beta-bailee therapy. Increase the patient's beta-bailee to 50 mg p.o. q.12 h. Also would recommend that the patient continue antibiotics. Note that the patient's CHADsvASC corrected score was 0, hence the patient can go home on aspirin. If his ejection fraction is normal, would try the patient either on *------* or sotalol. My feeling is once the patient's diverticulitis resolves, the patient will go back into sinus rhythm since he has no prior history of palpitations. Note that the patient is a FULL CODE. Unfortunately, he states he does not have any relatives or surrogate healthcare decision maker. Note 30 minutes spent on this patient including reviewing and adjusting his medications. More than 50% of the time spent on direct patient care and also discussions with the hospitalist taking care of the patient. We will wait for the patient's echocardiogram to get back. We will follow with you. DICTATING PHYSICIAN: JESSICA ESCOTO M.D. [id number] BEBO#: [id number] ID: [id number] JOB#: [id number] ACCT: [id number] cc: >
[2016-08-12] MEDS: METOPROLOL TARTRATE PF/INJ 5 MG/5 ML SDV IV PRN (04:01)
[2016-08-12 04:31] LABS: ANION GAP 13 (5-19); BLOOD UREA NITROGEN 13 mg/dL (7-20); CALCIUM 8.6 mg/dL (8.4-10.2); CARBON DIOXIDE 22 mmol/L (22-30); CHLORIDE 107 mmol/L (98-107); CREATININE RESULT 0.63 mg/dL (0.52-1.25); GLUCOSE 113 mg/dL (75-110); MAGNESIUM 2.2 mg/dL (1.6-2.3); POTASSIUM 4.1 mmol/L (3.6-5.0); SODIUM 142.2 mmol/L (137-145)
[2016-08-12] MEDS: LANSOPRAZOLE 30 MG TAB.RAP.DR PO SCH (05:50)
[2016-08-12] MEDS: NORMAL SALINE 1000 ML 1,000 ML IV PRN ×3 (05:51→18:58)
--- NOTE | 2016-08-12 09:31 | EKG REPORT ---
SEVERITY:- ABNORMAL ECG - ATRIAL FIBRILLATION, V-RATE 74-153 PROBABLE POSTERIOR INFARCT BORDERLINE T ABNORMALITIES, INFERIOR LEADS : Confirmed by: Davida Beltrán 12-Aug-2016 09:31:18
[2016-08-12] MEDS ORDERED: METOPROLOL SUCCINATE 50 MG TAB.SR.24H PO SCH (10:00)
[2016-08-12] MEDS: ENOXAPARIN SODIUM INJ 40 MG/0.4 ML DISP.SYRIN SUBCUT SCH (10:07)
[2016-08-12] MEDS ORDERED: DIGOXIN INJ 0.5 MG/2 ML AMPULE ONE (10:18)
[2016-08-12] MEDS ORDERED: CLONAZEPAM 1 MG TABLET ONE (12:17)
--- NOTE | 2016-08-12 12:32 | PDOC PROGRESS REPORT ---
Subjective Progress Note for:: 08/12/16 Subjective:: Patient denies any complaints. Physical Exam Vital Signs: Temp Pulse Resp BP Pulse Ox 98.4 F 105 H 18 127/77 H 94 08/12/16 08:00 08/12/16 08:00 08/12/16 08:00 08/12/16 08:00 08/12/16 04:00 Intake & Output 08/11/16 08/12/16 08/13/16 06:59 06:59 06:59 Intake Total 4105 2794 Output Total 2325 1641 Balance 1780 1153 Weight 77.2 kg 77.2 kg General appearance: PRESENT: no acute distress Eye exam: PRESENT: conjunctiva pink. ABSENT: scleral icterus Mouth exam: PRESENT: moist, tongue midline Neck exam: ABSENT: JVD Respiratory exam: PRESENT: clear to auscultation coretta. ABSENT: rales, rhonchi, wheezes Cardiovascular exam: PRESENT: irregular rhythm. ABSENT: diastolic murmur, rubs , systolic murmur GI/Abdominal exam: PRESENT: normal bowel sounds, soft. ABSENT: distended, guarding, mass, organolmegaly, rebound, tenderness Extremities exam: ABSENT: calf tenderness, clubbing, pedal edema Neurological exam: PRESENT: alert, awake, oriented to person, oriented to place , oriented to time, oriented to situation, CN II-XII grossly intact. ABSENT: motor sensory deficit Psychiatric exam: PRESENT: appropriate affect Skin exam: PRESENT: dry, intact, warm. ABSENT: cyanosis, rash Results Laboratory Results: 08/11/16 04:25 08/12/16 03:38 08/12/16 03:38 Sodium 142.2 Potassium 4.1 Chloride 107 Carbon Dioxide 22 Anion Gap 13 BUN 13 Creatinine 0.63 Est GFR ( Amer) > 60 Est GFR (Non-Af Amer) > 60 Glucose 113 H Calcium 8.6 Magnesium 2.2 08/09/16 08/09/16 08/10/16 19:35 19:35 01:23 Creatine Kinase 147 168 CK-MB (CK-2) 0.36 Troponin I 0.151 08/10/16 08/10/16 08/10/16 01:23 07:14 07:14 Creatine Kinase 182 H CK-MB (CK-2) 0.51 1.19 Troponin I 0.116 0.072 Impressions: Chest X-Ray 08/09/16 00:00 IMPRESSION: NO SIGNIFICANT RADIOGRAPHIC FINDING IN THE CHEST. Abdomen/Pelvis CT 08/09/16 14:28 IMPRESSION: Diverticulitis sigmoid colon. No perforation or abscess. Lung Scan-VQ NM 08/09/16 21:07 IMPRESSION: NO VENTILATION-PERFUSION MISMATCHES; NEGATIVE FOR PULMONARY EMBOLI. INHOMOGENEOUS DISTRIBUTION OF RADIOTRACER LIKELY ON THE BASIS OF UNDERLYING CHRONIC PULMONARY DISEASE. Chest/Abdomen CTA 08/10/16 00:00 IMPRESSION: NORMAL CTA OF THE CHEST. NO PULMONARY EMBOLI. Assessment & Plan - Diagnosis (1) Diverticulitis large intestine Qualifiers: Diverticulitis complication: without perforation or abscess Is this a current diagnosis for this admission?: YesPlan: Patient's abdominal pain has improved. We'll continue with the IV ertapenem (2) Atrial fibrillation with RVR Is this a current diagnosis for this admission?: YesPlan: Patient is being followed by cardiology. Continue with amiodarone per the recommendations. (3) Obesity Qualifiers: Obesity severity: unspecified obesity severity Is this a current diagnosis for this admission?: Yes (4) SVT (supraventricular tachycardia) Is this a current diagnosis for this admission?: Yes - Time Time Spent with patient: 25-34 minutes - Inpatient Certification Medical Necessity: Need Close Monitoring Due to Risk of Patient Decompensation, Need For Continuous Telemetry Monitoring, Need for IV Antibiotics
[2016-08-12] MEDS ORDERED: CLONAZEPAM 1 MG TABLET PO ONE (12:45)
[2016-08-12] MEDS ORDERED: NORMAL SALINE 250 ML IV ONE (13:15)
[2016-08-12] MEDS: DEXTROSE 5%-WATER 500 ML with AMIODARONE HCL 900 MG IV PRN ×2 (14:59)
[2016-08-12] MEDS: ERTAPENEM SODIUM 1 GM in NORMAL SALINE 50 ML IV SCH (20:53)
[2016-08-12] MEDS: METOPROLOL SUCCINATE 50 MG TAB.SR.24H PO SCH (21:00)
[2016-08-13 03:47] LABS: ABSOLUTE BASOPHILS # (AUTO) 0.1 10^3/uL (0.0-0.2); ABSOLUTE EOSINOPHILS # (AUTO) 0.2 10^3/uL (0.0-0.6); ABSOLUTE LYMPHOCYTES (AUTO) 2.2 10^3/uL (0.5-4.7); ABSOLUTE MONOCYTES (AUTO) 0.6 10^3/uL (0.1-1.4); ABSOLUTE NEUT (AUTO) 4.9 10^3/uL (1.7-8.2); BASOPHILS % (AUTO) 0.9 % (0-2); EOSINOPHILS % (AUTO) 2.8 % (0-6); HEMATOCRIT 46.1 % (37.9-51.0); HEMOGLOBIN 16.3 g/dL (13.5-17.0); HGB HCT DIFFERENCE 2.8; LYMPHOCYTES % (AUTO) 27.6 % (13-45); MEAN CORPUSCULAR HEMOGLOBIN 30.7 pg (27.0-33.4); MEAN CORPUSCULAR HGB CONC 35.3 g/dL (32.0-36.0); MEAN CORPUSCULAR VOLUME 87 fl (80-97); MONOCYTES % (AUTO) 7.4 % (3-13); RED BLOOD COUNT 5.31 10^6/uL (4.35-5.55); RED CELL DISTRIBUTION WIDTH 12.9 % (11.5-14.0); SEGMENTED NEUTROPHILS % (AUTO) 61.3 % (42-78); WHITE BLOOD COUNT 8.1 10^3/uL (4.0-10.5)
[2016-08-13 04:01] LABS: ANION GAP 12 (5-19); BLOOD UREA NITROGEN 14 mg/dL (7-20); CALCIUM 8.8 mg/dL (8.4-10.2); CARBON DIOXIDE 22 mmol/L (22-30); CHLORIDE 109 mmol/L (98-107); CREATININE RESULT 0.74 mg/dL (0.52-1.25); GLUCOSE 125 mg/dL (75-110); POTASSIUM 3.9 mmol/L (3.6-5.0); SODIUM 142.6 mmol/L (137-145)
[2016-08-13] MEDS: LANSOPRAZOLE 30 MG TAB.RAP.DR PO SCH (06:10)
[2016-08-13] MEDS ORDERED: VERAPAMIL HCL INJ/PF 5 MG/2 ML SDV IV ONE ×4 (09:22→14:15)
--- NOTE | 2016-08-13 11:14 | PDOC PROGRESS REPORT ---
Subjective Progress Note for:: 08/13/16 Subjective:: Patient denies any complaints. Physical Exam Vital Signs: Temp Pulse Resp BP Pulse Ox 97.8 F 90 21 H 112/86 H 97 08/13/16 08:00 08/13/16 08:00 08/13/16 08:03 08/13/16 08:03 08/13/16 08:03 Intake & Output 08/12/16 08/13/16 08/14/16 06:59 06:59 06:59 Intake Total 2794 3017 350 Output Total 1641 2050 0 Balance 1153 967 350 Weight 77.2 kg 76.1 kg General appearance: PRESENT: no acute distress Eye exam: PRESENT: conjunctiva pink. ABSENT: scleral icterus Mouth exam: PRESENT: moist, tongue midline Neck exam: ABSENT: JVD Respiratory exam: PRESENT: clear to auscultation coretta. ABSENT: rales, rhonchi, wheezes Cardiovascular exam: PRESENT: irregular rhythm. ABSENT: diastolic murmur, rubs , systolic murmur GI/Abdominal exam: PRESENT: normal bowel sounds, soft. ABSENT: distended, guarding, mass, organolmegaly, rebound, tenderness Extremities exam: ABSENT: calf tenderness, clubbing, pedal edema Neurological exam: PRESENT: alert, awake, oriented to person, oriented to place , oriented to time, oriented to situation, CN II-XII grossly intact. ABSENT: motor sensory deficit Psychiatric exam: PRESENT: appropriate affect Skin exam: PRESENT: dry, intact, warm. ABSENT: cyanosis, rash Results Laboratory Results: 08/13/16 03:33 08/13/16 03:33 08/13/16 08/13/16 03:33 03:33 WBC 8.1 RBC 5.31 Hgb 16.3 Hct 46.1 MCV 87 MCH 30.7 MCHC 35.3 RDW 12.9 Plt Count 188 Seg Neutrophils % 61.3 Lymphocytes % 27.6 Monocytes % 7.4 Eosinophils % 2.8 Basophils % 0.9 Absolute Neutrophils 4.9 Absolute Lymphocytes 2.2 Absolute Monocytes 0.6 Absolute Eosinophils 0.2 Absolute Basophils 0.1 Sodium 142.6 Potassium 3.9 Chloride 109 H Carbon Dioxide 22 Anion Gap 12 BUN 14 Creatinine 0.74 Est GFR ( Amer) > 60 Est GFR (Non-Af Amer) > 60 Glucose 125 H Calcium 8.8 08/09/16 08/09/16 08/10/16 19:35 19:35 01:23 Creatine Kinase 147 168 CK-MB (CK-2) 0.36 Troponin I 0.151 08/10/16 08/10/16 08/10/16 01:23 07:14 07:14 Creatine Kinase 182 H CK-MB (CK-2) 0.51 1.19 Troponin I 0.116 0.072 Impressions: Chest X-Ray 08/09/16 00:00 IMPRESSION: NO SIGNIFICANT RADIOGRAPHIC FINDING IN THE CHEST. Abdomen/Pelvis CT 08/09/16 14:28 IMPRESSION: Diverticulitis sigmoid colon. No perforation or abscess. Lung Scan-VQ NM 08/09/16 21:07 IMPRESSION: NO VENTILATION-PERFUSION MISMATCHES; NEGATIVE FOR PULMONARY EMBOLI. INHOMOGENEOUS DISTRIBUTION OF RADIOTRACER LIKELY ON THE BASIS OF UNDERLYING CHRONIC PULMONARY DISEASE. Chest/Abdomen CTA 08/10/16 00:00 IMPRESSION: NORMAL CTA OF THE CHEST. NO PULMONARY EMBOLI. Assessment & Plan - Diagnosis (1) Diverticulitis large intestine Qualifiers: Diverticulitis complication: without perforation or abscess Is this a current diagnosis for this admission?: YesPlan: Patient's abdominal pain has improved. Will change to by mouth Augmentin. (2) Atrial fibrillation with RVR Is this a current diagnosis for this admission?: YesPlan: Patient is being followed by cardiology. The patient is still having episodes of tachycardia heart rate into the 140s but he is asymptomatic with this. Will defer to cardiology's recommendations. (3) Obesity Qualifiers: Obesity severity: unspecified obesity severity Is this a current diagnosis for this admission?: Yes (4) SVT (supraventricular tachycardia) Is this a current diagnosis for this admission?: Yes - Time Time Spent with patient: 25-34 minutes - Inpatient Certification Medical Necessity: Need Close Monitoring Due to Risk of Patient Decompensation
[2016-08-13] MEDS: ENOXAPARIN SODIUM INJ 80 MG/0.8 ML DISP.SYRIN SUBCUT SCH (12:10)
[2016-08-13] MEDS: METOPROLOL SUCCINATE 50 MG TAB.SR.24H PO SCH (12:13)
[2016-08-13] MEDS ORDERED: VERAPAMIL HCL 120 MG TABLET.SA PO ONE (13:00)
[2016-08-13] MEDS ORDERED: DEXTROSE 5%-WATER 500 ML with AMIODARONE HCL 900 MG IV PRN ×2 (13:40)
[2016-08-13] MEDS: AMOXICILLIN TR/POT CLAVULANATE 500-125 MG TAB PO SCH ×2 (13:43→21:25)
--- NOTE | 2016-08-14 01:03 | PROGRESS NOTE E ---
Progress Note NAME: LIV RUFF : 1960 AGE: 56Y DATE: 08/12/2016 ROOM: 612 SUBJECTIVE: The patient states that he has no further lower abdominal pain and no diarrhea. There is no tenderness on palpation. The patient still is in atrial fibrillation and the patient is on amiodarone drip. There is no ventricular arrhythmia. There is no chest pain or discomfort. There is no shortness of breath. There are no palpitations. There is no PND or orthopnea. There is no leg edema. OBJECTIVE: GENERAL: The patient is mildly obese in no acute distress. VITAL SIGNS: He is afebrile with a temperature of 98.4 degrees Fahrenheit, pulse is 105 beats per minute, subsequently went up to 144 and with 5 mg of IV verapamil came down to 98. Blood pressure is 121/77, respirations are 18 per minute, O2 sats are 96% on room air. HEENT: Head is normocephalic, atraumatic. Eyes: Pupils are equal, round, regular, and reactive to light and accommodation. Extraocular movements are normal. There is no conjunctival pallor. There is no scleral icterus. ENT is negative. NECK: Supple. There is no JVD. Carotids are equal. There is no bruit. There is no lymphadenopathy. Trachea is central. There is no goiter. LUNGS: Clear to auscultation and percussion. HEART: S1 and S2 are heard. There is a variable S1 in intensity. There is no S3 gallop. There is no S4 gallop. There is a systolic murmur in the left sternal border and the apex. There is no rub. ABDOMEN: Soft, nontender. There is no hepatosplenomegaly. Bowel sounds are well heard. There is no tenderness in the lower abdominal area. There is no rebound, guarding or rigidity. Bowel sounds are normal. EXTREMITIES: Femorals are slightly diminished. There are no femoral bruits. Leg pulses are diminished. There is no pedal edema. There is no clubbing or cyanosis. There is no calf tenderness. CENTRAL NERVOUS SYSTEM: The patient is awake, alert and oriented x3 with no focal deficit. PSYCHIATRIC: The patient's judgment and insight are normal. Her affect is normal. DIAGNOSTIC DATA: The patient's EKG shows atrial fibrillation and borderline T abnormalities in the inferior leads. The patient's sodium is 142.2, potassium 4.1, chloride 107, CO2 is 22. The patient's BUN is 13, creatinine is 0.63, GFR is greater than 60, his glucose is 113, his calcium is 8.6, magnesium is 2.2. IMPRESSION: 1. ATRIAL FIBRILLATION, AT PRESENT CONTROLLED VENTRICULAR RESPONSE ON IV AMIODARONE. 2. AT PRESENT THE PATIENT'S DIVERTICULITIS HAS RESOLVED. The patient has diverticulosis and colonic telangiectasia. 3. OBESITY. RECOMMENDATIONS: We will start the patient on Lovenox at 1 mg/kg subcutaneously q.12 h. Continue the patient on amiodarone and discuss with the hospitalist to see if the patient can be transferred to [facility] for BRAYAN guided cardioversion. This has been discussed with patient and patient's , and they are agreeable. Hence, we will wait for a bed. Thanking you. DICTATING PHYSICIAN: JESSICA ESCOTO M.D. [id number] PHY#: [id number] ID: [id number] JOB#: [id number] ACCT: [id number] cc: >
[2016-08-14] MEDS: LANSOPRAZOLE 30 MG TAB.RAP.DR PO SCH (06:02)
[2016-08-14] MEDS: AMOXICILLIN TR/POT CLAVULANATE 500-125 MG TAB PO SCH (06:02)
[2016-08-14] MEDS: ENOXAPARIN SODIUM INJ 80 MG/0.8 ML DISP.SYRIN SUBCUT SCH (08:22)
[2016-08-14 08:25] VITALS: BP 112/73
[2016-08-14] MEDS ORDERED: ASPIRIN 325 MG TABLET, ENT COATED PO SCH (10:00)
--- NOTE | 2016-08-14 11:12 | PDOC DISCHARGE SUMMARY ---
General - Admit/Disc Date/PCP Admission Date/Primary Care Provider: 08/09/16 18:43 Discharge Date: 08/14/16 - Discharge Diagnosis (1) Diverticulitis large intestine Is this a current diagnosis for this admission?: YesSummary: Treated initially with ertapenem and going home with Augmentin to complete a total of and days of antibiotics. (2) Atrial fibrillation with RVR Is this a current diagnosis for this admission?: YesSummary: Initially treated with amiodarone however he converted back to normal sinus rhythm with verapamil. (3) Obesity Is this a current diagnosis for this admission?: Yes (4) SVT (supraventricular tachycardia) Is this a current diagnosis for this admission?: Yes - Additional Information Resuscitation Status: Full Code Discharge Diet: Cardiac Discharge Activity: Activity As Tolerated Home Medications: Thiamine Mononitrate [Vitamin B-1] 100 mg PO DAILY 03/22/15 Fish Oil/Dha/Epa [Fish Oil 1,200 mg Fish Oil] 1 each PO DAILY 03/28/15 Amox Tr/Potassium Clavulanate [Augmentin 875-125 mg Tablet] 1 tab PO BID #8 tablet 08/14/16 Aspirin [Ecotrin 325 mg EC Tablet] 325 mg PO DAILY tabec 08/14/16 Verapamil HCl [Verapamil Sr] 120 mg PO DAILY #30 [email or web address] 08/14/16 History of Present Illness History of Present Illness: LIV RUFF is a 56 year old male who presented with nausea vomiting abdominal pain. Patient was found to have diverticulitis. He also was noted have tachycardia when he presented and was found to have an SVT exertion. The patient was given adenosine and had conversion into atrial fibrillation. The patient was given diltiazem with no control of his heart rate and eventually went underwent DC cardioversion. Patient was admitted for antibiotics and better rate control of his heart. Hospital Course Hospital Course: LIV RUFF is a 56 year old male who presented with nausea vomiting abdominal pain. The patient was found to have diverticulitis. The patient was treated initially ertapenem and improved and was switched over to Augmentin. He is going to complete a total of 10 days of antibiotics with the oral Augmentin. Patient when he presented also was noted to be in SVT and was given adenosine and then developed atrial fibrillation. The patient was given Cardizem with slowing and he underwent DC cardioversion in the emergency room. The patient continued to have problems with atrial fibrillation and cardiology was consulted and started him on amiodarone. He continued to remain in atrial fibrillation and was switched over to verapamil and had resumption of normal sinus rhythm. Patient will be sent home on verapamil but will not be sent home on anticoagulation as he has a low chads score. Physical Exam Vital Signs: Temp Pulse Resp BP Pulse Ox 98.3 F 61 23 H 112/73 93 08/14/16 08:33 08/14/16 08:33 08/14/16 08:33 08/14/16 08:33 08/14/16 08:33 Intake & Output 08/13/16 08/14/16 08/15/16 06:59 06:59 06:59 Intake Total 3017 1171 177 Output Total 2050 920 Balance 967 251 177 Weight 76.1 kg General appearance: PRESENT: no acute distress Eye exam: PRESENT: conjunctiva pink. ABSENT: scleral icterus Mouth exam: PRESENT: moist, tongue midline Neck exam: ABSENT: JVD Respiratory exam: PRESENT: clear to auscultation coretta. ABSENT: rales, rhonchi, wheezes Cardiovascular exam: PRESENT: RRR. ABSENT: diastolic murmur, rubs, systolic murmur GI/Abdominal exam: PRESENT: normal bowel sounds, soft. ABSENT: distended, guarding, mass, organolmegaly, rebound, tenderness Extremities exam: ABSENT: calf tenderness, clubbing, pedal edema Neurological exam: PRESENT: alert, awake, oriented to person, oriented to place , oriented to time, oriented to situation, CN II-XII grossly intact. ABSENT: motor sensory deficit Psychiatric exam: PRESENT: appropriate affect Skin exam: PRESENT: dry, intact, warm. ABSENT: cyanosis, rash Results Laboratory Results: 08/13/16 03:33 08/13/16 03:33 08/09/16 08/09/16 08/10/16 19:35 19:35 01:23 Creatine Kinase 147 168 CK-MB (CK-2) 0.36 Troponin I 0.151 08/10/16 08/10/16 08/10/16 01:23 07:14 07:14 Creatine Kinase 182 H CK-MB (CK-2) 0.51 1.19 Troponin I 0.116 0.072 Impressions: Chest X-Ray 08/09/16 00:00 IMPRESSION: NO SIGNIFICANT RADIOGRAPHIC FINDING IN THE CHEST. Abdomen/Pelvis CT 08/09/16 14:28 IMPRESSION: Diverticulitis sigmoid colon. No perforation or abscess. Lung Scan-VQ NM 08/09/16 21:07 IMPRESSION: NO VENTILATION-PERFUSION MISMATCHES; NEGATIVE FOR PULMONARY EMBOLI. INHOMOGENEOUS DISTRIBUTION OF RADIOTRACER LIKELY ON THE BASIS OF UNDERLYING CHRONIC PULMONARY DISEASE. Chest/Abdomen CTA 08/10/16 00:00 IMPRESSION: NORMAL CTA OF THE CHEST. NO PULMONARY EMBOLI. Qualifiers PATEINT BEING DISCHARGED WITH ANY OF THE FOLLOWING DIAGNOSIS?: No Plan Discharge Plan: Patient is discharged to home in stable condition. Will follow-up with primary care in 2 weeks and also with cardiology in 2 weeks. Time Spent: Greater than 30 Minutes
--- NOTE | 2016-08-14 13:18 | PROGRESS NOTE E ---
Progress Note NAME: LIV RUFF : 1960 AGE: 56Y DATE: 08/13/2016 ROOM: 612 SUBJECTIVE: The patient denies any chest pain or discomfort. He continues to be in atrial fibrillation at a rate of 103 beats per minute. The patient denies any chest pain or discomfort. There is no PND, orthopnea. There is no abdominal pain. There is no nausea, vomiting, or diarrhea. There is no TIA or CVA symptoms. OBJECTIVE: GENERAL: The patient is mildly obese. VITAL SIGNS: He is afebrile with a temperature of 97.8 degrees Fahrenheit. His pulse is 103 beats per minute, irregularly irregular, still in atrial fibrillation. His blood pressure is 112/86, respirations are 15 per minute, O2 saturations are 97% on room air. HEAD: Atraumatic, normocephalic. EYES: Pupils are equal, round, regular, reactive to light and accommodation. Extraocular movements are normal. There is no conjunctival pallor. There is no scleral icterus. ENT: Negative. NECK: Supple. There is no JVD. Carotids are equal. There is no bruit. There is no lymphadenopathy. Trachea is central. There is no goiter. LUNGS: Clear to auscultation and percussion. CARDIOVASCULAR: S1 and S2 heard. There is variable S1 in intensity. There is no S3 gallop. There is no S4 gallop. There is a systolic murmur in the left sternal border of the apex. There is no rub. ABDOMEN: Soft, nontender. There is no hepatosplenomegaly. Bowel sounds are well heard. There is no tenderness in the lower abdominal area. There is no rebound, guarding, or rigidity. Bowel sounds are normal. EXTREMITIES: Femorals are slightly diminished. There are no femoral bruits. Leg pulses are diminished. There is no pedal edema. There is no clubbing or cyanosis. There is no calf tenderness. CENTRAL NERVOUS SYSTEM: The patient is awake, alert, oriented x3 with no focal deficit. PSYCHIATRIC: The patient's judgment and insight are intact. His affect is normal. LABORATORY: The patient's white count on 08/13/2016 was 8.1, hemoglobin of 16.3 with a hematocrit of 46.1. Platelet is 188,000. The patient's sodium is 142.6, potassium is 3.9, chloride is 109, CO2 is 22. The patient's BUN is 14, creatinine 0.74. GFR is greater than 60 and his glucose is 125, calcium is 8.8. IMPRESSION: 1. ATRIAL FIBRILLATION, AT PRESENT VENTRICULAR RESPONSE 105 AND PATIENT ON AMIODARONE. 2. AT PRESENT, THE PATIENT'S DIVERTICULITIS IS RESOLVED. 3. HIS DIVERTICULOSIS AND COLONIC TELANGIECTASIA. 4. OBESITY. RECOMMENDATION: NOTE: Will continue the patient's Lovenox for present, but I gave him 5 mg of verapamil. The patient's significantly lowered, hence, his amiodarone drip was discontinued and the patient was given verapamil CD 120 mg p.o. x1. Will see if the patient converts to this. Note that the patient did not get a bed yesterday to be transferred to [facility] and is still waiting for it. If the patient converts with verapamil, then will possibly send the patient home on aspirin and verapamil. NOTE: Forty minutes spent on the patient, including *------* his medications, adjusting his medications, starting new medications. Discussions with the patient and the patient's and also with the hospitalist taking care of the patient. More than 50% of the time spent was on direct patient care. DICTATING PHYSICIAN: JESSICA ESCOTO M.D. [id number] SHAHIDY#: [id number] ID: [id number] JOB#: [id number] ACCT: [id number] cc: >
--- NOTE | 2016-08-14 14:54 | PROGRESS NOTE E ---
Progress Note NAME: LIV RUFF : 1960 AGE: 56Y DATE: 08/14/2016 ROOM: 612 SUBJECTIVE: Note that yesterday afternoon the patient converted to sinus rhythm with stable blood pressure. On verapamil 120 mg CD given. Note, earlier the amiodarone has been discontinued. The patient has no chest pain or discomfort. The patient feels well. There is no PND or orthopnea. There are no palpitations. There are no TIA or CVA symptoms. The patient has no abdominal pain, nausea or vomiting or diarrhea. OBJECTIVE: GENERAL: The patient is mildly obese, in no acute distress. VITAL SIGNS: She is afebrile with a temperature of 98.3 degrees Fahrenheit, pulse is 61 beats per minute, blood pressure 112/73, respirations are 20 per minute, O2 sats are 93% on room air. HEENT: Head is normocephalic, atraumatic. Eyes: Pupils are equal, round, regular, and reactive to light and accommodation. Extraocular movements are normal. There is no conjunctival pallor. There is no scleral icterus. ENT is negative. NECK: Supple. There is no JVD. Carotids are equal. There is no bruit. There is no lymphadenopathy. Trachea is central. There is no goiter. LUNGS: Clear to auscultation and percussion. HEART: S1 and S2 are heard. S1 is of normal intensity. There is no S3 gallop. There is no S4 gallop. There is a systolic murmur in the left sternal border and the apex. There is no rub. ABDOMEN: Soft, nontender. There is no hepatosplenomegaly. Bowel sounds are heard. There are no tender areas in the lower abdominal area. There is no rebound, guarding or rigidity. Bowel sounds are normal. EXTREMITIES: Femorals are slightly diminished. There are no femoral bruits. Leg pulses are diminished. There is no pedal edema. There is no clubbing or cyanosis. There is no calf tenderness. CENTRAL NERVOUS SYSTEM: The patient is awake, alert and oriented x3 with no focal deficits. PSYCHIATRIC: The patient's judgment and insight are intact. Affect is normal. DIAGNOSTIC DATA: Note that the monitor rhythms from yesterday show sinus rhythm. IMPRESSION: 1. ATRIAL FIBRILLATION CONVERTED TO SINUS. Now patient in sinus rhythm; hence, this will need to be considered as paroxysmal atrial fibrillation. 2. AT PRESENT, THE PATIENT'S DIVERTICULITIS HAS RESOLVED. 3. DIVERTICULOSIS AND COLONIC TELANGIECTASIA. 4. OBESITY. RECOMMENDATIONS: The patient is being discharged. Would recommended that patient continue verapamil CD 120 mg p.o. daily along with enteric-coated aspirin 325 mg p.o. daily. The patient is being asked to exercise and lose weight. After being asked about the 3 cardiologists that the patient had options to follow up with, the patient and the patient's decided to follow up with me. It is their decision. Hence, my office number and my cell phone number were given. Note that the patient is being discharged. They will call me if there are any problems on my cell phone. TIME SPENT: Note, 30 minutes spent on this patient including explanation of what to do if the patient has recurrent palpitations or if the patient feels dizzy or chest pain or any other symptoms or shortness of breath. The and the patient understand. Note, 30 minutes spent on this patient with more than 50% of the time spent on direct patient care. DICTATING PHYSICIAN: JESSICA ESCOTO M.D. [id number] PHY#: [id number] ID: [id number] JOB#: [id number] ACCT: [id number] cc: >
== END 2016-08-14 09:10 | disposition home or self-care (01) | DRG 309 ==
LOC: ER 12:27 → UNDOADMIN 18:22 → EH 18:22 → ICU 08-10 05:40 → EH 08-10 05:40
PROC: 5A2204Z Restoration of Cardiac Rhythm, Single (ICD-10-PCS; principal; 2016-08-09)
DX: I47.1 Supraventricular tachycardia (principal); K57.92 Diverticulitis of intestine, part unspecified, without perforation or abscess without bleeding; I48.0 Paroxysmal atrial fibrillation; E66.9 Obesity, unspecified; Z68.30 Body mass index [BMI] 30.0-30.9, adult; I78.1 Nevus, non-neoplastic; Z98.49 Cataract extraction status, unspecified eye
CPT/HCPCS: 36415; 71020; 71275; 74177; 78582; 80048; 80053; 80307; 81001; 82550; 82553; 83605; 83690; 83735; 84439; 84443; 84484; 85025; 85027; 85379; 87493; 93005; 93010; 93306; 96365; 96366; 99285; A9540; A9567; J0282; J0744; J1160; J1335; J1650; J2270; J2405; J2704; J3480; J3490; J7030; J7050; J7060; Q9969